=== PATIENT | male | born 1975 | race Caucasian/White ===

== ENCOUNTER 2023-04-15 16:32 | Inpatient (IN) | payer OTHER ==
[~2023-04-15] VITALS: Ht 170.2 cm; Wt 104.3 kg
--- NOTE | 2023-04-15 17:11 | NUR ---
SE RECIBE PTE ALERTA Y ORIENTADO X3. REFIERE DIFICULTAD RESPIRATORIA Y FIEBRE HACE 3 BAUTISTA. PTE VIENE DE CRUCERO DONDE FUE CANALIZADO EN RA, PATENTE CLAU DE EDEMA Y ERITEMA. SE MIDEN SV Y SE UBICA.
--- NOTE | 2023-04-15 18:30 | NUR ---
EVALUA PTE. SE EDUCA SOBRE TX MEDICO, REFIERE ENTENDER. SE REALIZAN MUESTRAS DE LABORATORIO BAJO MEDIDAS ASEPTICAS. SE ADMINISTRAN MEDICAMENTOS JESI ORDEN MEDICA. SE COORDINA KARTHIK X. SE NOTIFICA ABG Y TERAPIA RESPIRATORIA A . PTE MANEJADO POR . PENDIENTE RE-EVALUACION MEDICA.
[2023-04-16] MEDS ORDERED: TRANSDERM-SCOP1 EACH (13:38)
[2023-04-16] MEDS ORDERED: ALLEGRA-D 24 H1 EACH (13:38)
[2023-04-16] MEDS ORDERED: BREO ELLIPTA 21 EACH (13:39)
[2023-04-16] MEDS ORDERED: OMEPRAZOLE20 MG (13:39)
== END 2023-04-17 13:20 | disposition left against medical advice (07) | DRG 179 ==
LOC: ER 16:32 → MEDJ 21:24 → MEDI 04-16 19:54 → MEDJ 04-16 20:07
PROVIDERS: General Practice; Internal Medicine Infectious Disease; ADMIT Specialist; ATTEND Specialist
PROC: 8E0ZXY6 Isolation (ICD-10-PCS; principal; 2023-04-15)
PROC: BB24ZZZ Computerized Tomography (CT Scan) of Bilateral Lungs (ICD-10-PCS; 2023-04-15)
PROC: 3E0F7GC Introduction of Other Therapeutic Substance into Respiratory Tract, Via Natural or Artificial Opening (ICD-10-PCS; 2023-04-15)
PROC: 3E0F7SF Introduction of Other Gas into Respiratory Tract, Via Natural or Artificial Opening (ICD-10-PCS; 2023-04-15)
PROC: 4A12X4Z Monitoring of Cardiac Electrical Activity, External Approach (ICD-10-PCS; 2023-04-16)
DX: A48.1 Legionnaires' disease (principal); J16.8 Pneumonia due to other specified infectious organisms; J45.998 Other asthma; D72.829 Elevated white blood cell count, unspecified; G47.33 Obstructive sleep apnea (adult) (pediatric)